=== PATIENT | female | born 1945 ===

== ENCOUNTER 2025-01-05 04:34 | Outpatient (CLI) | payer MEDICARE, BC, SELFPAY ==
[2025-01-05 13:49] LABS: Abs Immature Grans 0.04 10^3/uL (0.0-0.06); HCT 44.2 % (36.0-46.0); HGB 14.6 g/dL (11.2-15.7); Immature Grans % 0.5 %; MCH 30.9 pg (27.0-33.0); MCHC 33.0 % (32.0-36.0); MCV 93 fL (80-95); MPV 10.3 fL (8.0-11.0); Platelet Count 352 10^3/uL (130-400); RBC 4.73 10^6/uL (3.93-5.22); RDW 13.5 % (11.7-14.6); RDW-SD 46.0 fL; WBC 8.13 10^3/uL (4.4-10.8)
[2025-01-05 14:43] LABS: ALT 32 U/L (14-59); AST 17 U/L (15-37); Albumin 3.5 g/dL (3.4-5.0); Alkaline Phosphatase 90 U/L (46-116); Anion Gap 11.8 mmol/L (3-11); BUN 19 mg/dL (7-18); Bilirubin, Total 0.7 mg/dL (0.2-1.0); CO2 26.2 mmol/L (21.0-32.0); Calcium 9.0 mg/dL (8.5-10.1); Chloride 108 mmol/L (98-107); Estimated GFR 38.75 (mL/min/1.73m2); Glucose 113 mg/dL (74-106); Magnesium 1.5 mg/dL (1.8-2.4); Potassium 4.2 mmol/L (3.5-5.1); Sodium 146 mmol/L (136-145); Total Protein 7.5 g/dL (6.4-8.2)
== END 2025-01-05 04:35 | disposition home or self-care (01) ==
LOC: LBO 04:35
PROVIDERS: Visit Provider Internal Medicine Medical Oncology
DX: C34.2 Malignant neoplasm of middle lobe, bronchus or lung (principal)
CPT/HCPCS: 36415; 80053; 83735; 85025

== ENCOUNTER 2025-01-20 08:17 | Outpatient (CLI) | payer MEDICARE, BC, SELFPAY ==
[2025-01-20 09:51] LABS: Abs Immature Grans 0.04 10^3/uL (0.0-0.06); HCT 44.8 % (36.0-46.0); HGB 14.6 g/dL (11.2-15.7); Immature Grans % 0.5 %; MCH 30.5 pg (27.0-33.0); MCHC 32.6 % (32.0-36.0); MCV 94 fL (80-95); MPV 10.4 fL (8.0-11.0); Platelet Count 323 10^3/uL (130-400); RBC 4.78 10^6/uL (3.93-5.22); RDW 13.2 % (11.7-14.6); RDW-SD 45.3 fL; WBC 7.83 10^3/uL (4.4-10.8)
[2025-01-20 10:11] LABS: ALT 24 U/L (14-59); AST 15 U/L (15-37); Albumin 3.7 g/dL (3.4-5.0); Alkaline Phosphatase 94 U/L (46-116); Anion Gap 9.0 mmol/L (3-11); BUN 29 mg/dL (7-18); Bilirubin, Total 0.9 mg/dL (0.2-1.0); CO2 26.0 mmol/L (21.0-32.0); Calcium 9.2 mg/dL (8.5-10.1); Chloride 109 mmol/L (98-107); Estimated GFR 38.75 (mL/min/1.73m2); Glucose 109 mg/dL (74-106); Potassium 4.4 mmol/L (3.5-5.1); Sodium 144 mmol/L (136-145); Total Protein 7.8 g/dL (6.4-8.2)
== END 2025-01-20 08:18 | disposition home or self-care (01) ==
PROVIDERS: Visit Provider Internal Medicine Medical Oncology
DX: C34.2 Malignant neoplasm of middle lobe, bronchus or lung (principal)
CPT/HCPCS: 36415; 80053; 85025

== ENCOUNTER 2025-01-27 03:50 | Outpatient (CLI) | payer MEDICARE, BC, SELFPAY ==
[2025-01-27 08:38] LABS: Abs Immature Grans 0.07 10^3/uL (0.0-0.06); HCT 43.2 % (36.0-46.0); HGB 14.1 g/dL (11.2-15.7); Immature Grans % 0.8 %; MCH 30.3 pg (27.0-33.0); MCHC 32.6 % (32.0-36.0); MCV 93 fL (80-95); MPV 10.5 fL (8.0-11.0); Platelet Count 306 10^3/uL (130-400); RBC 4.65 10^6/uL (3.93-5.22); RDW 12.4 % (11.7-14.6); RDW-SD 42.6 fL; WBC 8.46 10^3/uL (4.4-10.8)
[2025-01-27 09:05] LABS: ALT 26 U/L (14-59); AST 17 U/L (15-37); Albumin 3.3 g/dL (3.4-5.0); Alkaline Phosphatase 86 U/L (46-116); Anion Gap 6.7 mmol/L (3-11); BUN 33 mg/dL (7-18); Bilirubin, Total 1.2 mg/dL (0.2-1.0); CO2 26.3 mmol/L (21.0-32.0); Calcium 9.1 mg/dL (8.5-10.1); Chloride 105 mmol/L (98-107); Estimated GFR 28.66 (mL/min/1.73m2); Glucose 115 mg/dL (74-106); Potassium 4.7 mmol/L (3.5-5.1); Sodium 138 mmol/L (136-145); Total Protein 7.1 g/dL (6.4-8.2)
[2025-01-27 10:38] LABS: Magnesium 1.4 mg/dL (1.8-2.4)
== END 2025-01-27 03:51 | disposition home or self-care (01) ==
LOC: LBO 03:50
PROVIDERS: Visit Provider Internal Medicine Medical Oncology
DX: C34.2 Malignant neoplasm of middle lobe, bronchus or lung (principal)
CPT/HCPCS: 36415; 80053; 83735; 85025

== ENCOUNTER 2025-02-02 07:32 | Outpatient (CLI) | payer MEDICARE, BC, SELFPAY ==
[2025-02-02 07:54] LABS: Abs Immature Grans 0.06 10^3/uL (0.0-0.06); HCT 40.2 % (36.0-46.0); HGB 13.1 g/dL (11.2-15.7); Immature Grans % 0.9 %; MCH 30.0 pg (27.0-33.0); MCHC 32.6 % (32.0-36.0); MCV 92 fL (80-95); MPV 11.0 fL (8.0-11.0); Platelet Count 267 10^3/uL (130-400); RBC 4.36 10^6/uL (3.93-5.22); RDW 12.4 % (11.7-14.6); RDW-SD 41.9 fL; WBC 6.83 10^3/uL (4.4-10.8)
[2025-02-02 08:11] LABS: Albumin 2.9 g/dL (3.4-5.0); Anion Gap 8.9 mmol/L (3-11); BUN 27 mg/dL (7-18); CO2 25.1 mmol/L (21.0-32.0); Calcium 8.5 mg/dL (8.5-10.1); Chloride 106 mmol/L (98-107); Estimated GFR 33.01 (mL/min/1.73m2); Glucose 123 mg/dL (74-106); Magnesium 1.2 mg/dL (1.8-2.4); Potassium 3.8 mmol/L (3.5-5.1); Sodium 140 mmol/L (136-145)
[2025-02-02 08:44] LABS: ALT 22 U/L (14-59); AST 14 U/L (15-37); Alkaline Phosphatase 86 U/L (46-116); Bilirubin, Total 0.7 mg/dL (0.2-1.0); Total Protein 6.8 g/dL (6.4-8.2)
== END 2025-02-02 07:33 | disposition home or self-care (01) ==
LOC: LBO 07:32
PROVIDERS: Visit Provider Internal Medicine Medical Oncology
DX: C34.2 Malignant neoplasm of middle lobe, bronchus or lung (principal)
CPT/HCPCS: 36415; 80053; 83735; 85025

== ENCOUNTER 2025-02-09 03:53 | Outpatient (RCR) | payer MEDICARE, BC, SELFPAY ==
[2025-02-09 07:09] LABS: Abs Immature Grans 0.04 10^3/uL (0.0-0.06); HCT 36.0 % (36.0-46.0); HGB 11.9 g/dL (11.2-15.7); Immature Grans % 0.9 %; MCH 30.3 pg (27.0-33.0); MCHC 33.1 % (32.0-36.0); MCV 92 fL (80-95); MPV 10.6 fL (8.0-11.0); Platelet Count 222 10^3/uL (130-400); RBC 3.93 10^6/uL (3.93-5.22); RDW 12.7 % (11.7-14.6); RDW-SD 41.6 fL; WBC 4.53 10^3/uL (4.4-10.8)
[2025-02-09 07:23] LABS: ALT 25 U/L (14-59); AST 12 U/L (15-37); Albumin 3.0 g/dL (3.4-5.0); Alkaline Phosphatase 75 U/L (46-116); Anion Gap 9.7 mmol/L (3-11); BUN 20 mg/dL (7-18); Bilirubin, Total 0.5 mg/dL (0.2-1.0); CO2 25.3 mmol/L (21.0-32.0); Calcium 8.0 mg/dL (8.5-10.1); Chloride 107 mmol/L (98-107); Glucose 115 mg/dL (74-106); Magnesium 1.1 mg/dL (1.8-2.4); Potassium 3.4 mmol/L (3.5-5.1); Sodium 142 mmol/L (136-145); Total Protein 6.8 g/dL (6.4-8.2)
[2025-02-09] MEDS: Normal Saline Flush 10 ML SYR IVP (07:30)
== END 2025-02-10 23:59 | disposition home or self-care (01) ==
LOC: INF 03:53
PROVIDERS: Visit Provider Internal Medicine Medical Oncology
DX: C34.2 Malignant neoplasm of middle lobe, bronchus or lung (principal); Z45.2 Encounter for adjustment and management of vascular access device
CPT/HCPCS: 36591; 80053; 83735; 85025

== ENCOUNTER 2025-02-23 03:08 | Outpatient (RCR) | payer MEDICARE, BC, SELFPAY ==
[2025-02-16] MEDS: Normal Saline Flush 10 ML SYR IVP (07:38)
[2025-02-16 08:08] LABS: Abs Immature Grans 0.03 10^3/uL (0.0-0.06); HCT 35.0 % (36.0-46.0); HGB 11.6 g/dL (11.2-15.7); Immature Grans % 0.7 %; MCH 30.4 pg (27.0-33.0); MCHC 33.1 % (32.0-36.0); MCV 92 fL (80-95); MPV 11.0 fL (8.0-11.0); Platelet Count 173 10^3/uL (130-400); RBC 3.81 10^6/uL (3.93-5.22); RDW 13.0 % (11.7-14.6); RDW-SD 41.5 fL; WBC 4.07 10^3/uL (4.4-10.8)
[2025-02-16 08:16] LABS: ALT 27 U/L (14-59); AST 14 U/L (15-37); Albumin 2.9 g/dL (3.4-5.0); Alkaline Phosphatase 77 U/L (46-116); Anion Gap 7.6 mmol/L (3-11); BUN 24 mg/dL (7-18); Bilirubin, Total 0.5 mg/dL (0.2-1.0); CO2 27.4 mmol/L (21.0-32.0); Calcium 8.1 mg/dL (8.5-10.1); Chloride 107 mmol/L (98-107); Glucose 131 mg/dL (74-106); Magnesium 1.2 mg/dL (1.8-2.4); Potassium 3.3 mmol/L (3.5-5.1); Sodium 142 mmol/L (136-145); Total Protein 6.3 g/dL (6.4-8.2)
[2025-02-23] MEDS: Normal Saline Flush 10 ML SYR IVP (08:41)
[2025-02-23 08:48] LABS: Abs Immature Grans 0.03 10^3/uL (0.0-0.06); HCT 31.1 % (36.0-46.0); HGB 10.5 g/dL (11.2-15.7); Immature Grans % 0.7 %; MCH 31.0 pg (27.0-33.0); MCHC 33.8 % (32.0-36.0); MCV 92 fL (80-95); MPV 10.9 fL (8.0-11.0); Platelet Count 133 10^3/uL (130-400); RBC 3.39 10^6/uL (3.93-5.22); RDW 13.3 % (11.7-14.6); RDW-SD 41.7 fL; WBC 4.47 10^3/uL (4.4-10.8)
[2025-02-23 09:14] LABS: ALT 23 U/L (14-59); AST 11 U/L (15-37); Albumin 3.0 g/dL (3.4-5.0); Alkaline Phosphatase 68 U/L (46-116); Anion Gap 11.1 mmol/L (3-11); BUN 26 mg/dL (7-18); Bilirubin, Total 1.3 mg/dL (0.2-1.0); CO2 26.9 mmol/L (21.0-32.0); Calcium 8.0 mg/dL (8.5-10.1); Chloride 104 mmol/L (98-107); Glucose 149 mg/dL (74-106); Magnesium 1.2 mg/dL (1.8-2.4); Potassium 3.4 mmol/L (3.5-5.1); Sodium 142 mmol/L (136-145); Total Protein 6.6 g/dL (6.4-8.2)
== END 2025-03-13 23:59 | disposition home or self-care (01) ==
LOC: INF 03:08
PROVIDERS: Visit Provider Internal Medicine Medical Oncology
DX: C34.2 Malignant neoplasm of middle lobe, bronchus or lung (principal); Z45.2 Encounter for adjustment and management of vascular access device
CPT/HCPCS: 36591; 80053; 83735; 85025